=== PATIENT | female | born 1990 | race African-American/Black ===

== ENCOUNTER 2016-10-13 19:26 | Emergency (ER) | payer MEDICAID ==
[~2016-10-13] VITALS: Ht 162.6 cm; Wt 48.0 kg
[2016-10-13 20:31] LABS: HEMATOCRIT 35.8 % (36.0-48.0); HEMOGLOBIN 11.5 g/dL (12.0-16.0); MEAN CORPUSCULAR HEMOGLOBIN 25.7 pg (28.0-32.0); MEAN CORPUSCULAR VOLUME 79.6 fL (81.0-99.0); PLATELET 259 x1000/uL (130-400); RED CELL DISTRIBUTION WIDTH 18.5 % (11.6-14.6)
[2016-10-13 21:34] LABS: CHLORIDE 106 mEq/L (98-107)
[2016-10-13 21:40] LABS: CARBON DIOXIDE 25 mEq/L (21-32)
[2016-10-13 23:15] VITALS: BP 128/70
== END 2016-10-13 23:15 | disposition home or self-care (01) ==
LOC: ER 19:49
DX: R55 Syncope and collapse (principal); V43.52XA Car driver injured in collision with other type car in traffic accident, initial encounter; Y93.89 Activity, other specified; Y92.488 Other paved roadways as the place of occurrence of the external cause
CPT/HCPCS: 36415; 80048; 85027; 93005; 99285; Z7610